=== PATIENT | female | born 1945 | race Caucasian/White ===

== ENCOUNTER → 2017-03-09 | Outpatient (CLI) | payer MEDICARE, OTHER ==
[~2017-03-09] MED LIST: CIPRO PO; COUMADIN5 MG PO; FUROSEMIDE40 MG PO; GLUCOTROL10 MG PO; LEVOTHROID125 MCG PO; LIPITOR20 MG PO; MULTI-DAY1 TAB PO; PRINIVIL10 MG PO; STOOL SOFTENER100 M1 PO; ZOLOFT100 MG PO
[2017-03-09 13:27] LABS: ALBUMIN SERUM 3.9 g/dL (3.5-5.0); BILIRUBIN,TOTAL 0.8 mg/dL (0.2-2.0); BUN/CREATININE RATIO 11.66; CALCIUM SERUM 10.1 mg/dL (8.4-10.2); CREATININE SERUM 2.4 mg/dL (0.6-1.4); GLOM FILT RATE Estimated 19.4 mL/min (>60); PHOSPHOROUS 3.7 mg/dL (2.5-4.6); POTASSIUM 4.1 mmol/L (3.5-5.1); PROTEIN TOTAL SERUM 6.8 g/dL (6.0-8.3); URIC ACID 5.8 mg/dL (2.6-7.2)
== END | disposition home or self-care (01) ==
LOC: CLAB 10:53
PROVIDERS: Internal Medicine Nephrology
DX: N18.4 Chronic kidney disease, stage 4 (severe) (principal); N25.81 Secondary hyperparathyroidism of renal origin
CPT/HCPCS: 36415; 80053; 82310; 83970; 84100; 84550